=== PATIENT | male | born 1945 | race Caucasian/White ===

== ENCOUNTER 2021-12-17 13:47 | Outpatient (CLI) | payer MEDICARE, SELFPAY ==
--- NOTE | 2021-12-17 13:56 | CT_ITS ---
STUDY: CT RIGHT SHOULDER REASON FOR EXAM: Male, 76 years old. PRE OP RADIATION DOSAGE (If Supplied By Facility): CTDIvol = ( 12.50 ) mGy, DLP = ( 633.35 ) mGycm TECHNIQUE: The patient was scanned in a multi detector CT scanner. High resolution transaxial imaging was performed without the administration of intravenous contrast material. Sagittal and coronal images were reconstructed. Individualized dose optimization techniques were used for this CT. COMPARISON: None. FINDINGS: There is severe osteoarthritis, with severe articular joint space narrowing, osteoarthritic spurring, articular remodeling, and with articular erosions. Small subchondral cysts are seen in the glenoid as well as in the humeral head. The generous spur formation is seen along the inferior medial aspect of the humeral head as well as the superior aspect of the humeral head. Decreased distance between the humeral head and the acromion suggestive of rotator cuff involvement. Normal visualized lateral clavicle. Normal acromioclavicular articulation. There is a Type II morphology (curved), with a neutral orientation. Normal visualized muscles and soft tissue structures. CT/Extremity Upper without Contra IMPRESSION: Marked degree of the osteoarthritis involving the right shoulder joint with degenerative spur formation and subchondral cyst formation. Electronically Signed: Luc Roblero MD at 14:49 EST , Service support ,
== END 2021-12-17 23:59 | disposition short-term general hospital (02) ==
LOC: CT 13:50
PROVIDERS: PCP Internal Medicine; Referring Provider Student in an Organized Health Care Education/Training Program; Visit Provider Student in an Organized Health Care Education/Training Program
DX: M19.011 Primary osteoarthritis, right shoulder (principal); G89.29 Other chronic pain
CPT/HCPCS: 73200

== ENCOUNTER 2022-02-05 10:08 | Observation (INO) | payer MEDICARE, SELFPAY ==
--- NOTE | 2022-01-28 10:31 | RAD_ITS ---
STUDY: X-RAY CHEST REASON FOR EXAM: Male, 76 years old. PREOP TECHNIQUE: PA and lateral views of the chest. COMPARISON: None. FINDINGS: Elevation of the left hemidiaphragm. The lungs are clear. There is no demonstrated pleural abnormality. Sternal cerclage wires are present from a prior sternotomy. Normal mediastinum and mirtha. Normal visualized pulmonary arteries. There is atherosclerotic tortuosity of the aortic arch and descending thoracic aorta. There are diffuse degenerative changes of the visualized thoracic spine. Normal visualized ribs, clavicles, and shoulders. There is no demonstrated abnormality of the visualized soft tissue structures of the upper abdomen. RAD/Chest PA and Lateral IMPRESSION: Hyperinflation. The lungs are clear. Elevation of left hemidiaphragm. Electronically Signed: Luc Roblero MD at 14:42 EST ,
--- NOTE | 2022-01-28 10:33 | EKG12_ITS ---
Test Reason : PRE OP Blood Pressure : / mmHG Vent. Rate : 065 BPM Atrial Rate : 065 BPM P-R Int : 172 ms QRS Dur : 082 ms QT Int : 404 ms P-R-T Axes : 060 056 051 degrees QTc Int : 420 ms Sinus rhythm with marked sinus arrhythmia Otherwise normal ECG Confirmed by LUCY MORELAND, CRISTOFER ([id number]), online content editor LATISHA CAMPOS ([id number]) on 01/29/2022 1:41:55 PM Referred By: Dony Hall Confirmed By:CRISTOFER AYALA MD
[2022-01-28 11:42] LABS: Absolute Lymphocyte Count 1.67 X10^3/uL (0.83-4.51); Absolute Neutrophil Count 4.3 X10^3/uL (2.0-7.7); Basophil# 0.04 X10^3/uL; Basophil% 0.5 % (0-1); Eosinophil# 0.38 X10^3/uL; Eosinophils% 5.2 % (0-5); Hematocrit 44.2 % (40-54); Hemoglobin 14.9 g/dL (13.0-16.5); Lymphocyte # 1.67 X10^3/ul (0.83-4.51); Lymphocyte % 22.7 % (19-41); Mean Corp Hgb Conc 33.7 g/dL (32-36); Mean Corpuscular Hgb 32.6 pg (27.0-32.0); Mean Corpuscular Volume 96.7 fL (80-94); Mean Platelet Vol. 9.4 fl (6.2-12.0); Monocyte# 0.93 X10^3/uL; Monocyte% 12.6 % (0-10); NRBC Flagged by Analyzer 0 % (0-5); Neutrophil # 4.31 X10^3/uL (2.7-7.7); Neutrophil % 58.6 % (47-70); Platelet Count 180 K/mm3 (150-450); RBC Distribution Width CV 12.2 % (11.6-14.6); RBC Distribution Width SD 43.8 fl (35.1-43.9); Red Blood Count 4.57 M/mm3 (4.6-6.2); White Blood Count 7.4 K/mm3 (4.4-11.0)
[2022-01-28 12:24] LABS: Magnesium 2.2 mg/dL (1.6-2.6)
[2022-01-28 12:37] LABS: Anion Gap 6 (5-15); BUN 21 mg/dL (7-18); BUN/Creat Ratio 20.4 RATIO (10-20); Calcium,Total 8.7 mg/dL (8.5-10.1); Chloride 103 mmol/L (98-107); Creatinine, Serum 1.03 mg/dL (0.70-1.30); EST Glomerular Filtration Rate 74 mL/min (>60); Est Glom Filt Rate - Afr Amer 90 mL/min (>60); Glucose 102 mg/dL (74-106); Potassium 4.5 mmol/L (3.5-5.1); Sodium Level 137 mmol/L (136-145)
[2022-02-05] VITALS (12 sets, daily range): BP systolic 114–158; BP diastolic 61–87; PULSE 57–71; RESP 12–18; TEMP 36.5–37.6; O2SAT 94–100; BMI 22.8
--- NOTE | 2022-02-05 | SHO_PTH ---
PATIENT: SHAHEEN DEE LOC: MS3 U#:[id number] AGE/SX: 76/M ROOM: ME310 RE02/05/[address]: Dr. Dony Hall DO : 1945 BED: 1 DIS: 02/06/2022 SPEC #: [id number] RECD: 02/05/22 12:55 STATUS: TREE MATILDE #: [id number] BOGDAN: 02/05/22 00:[address]: Dony Hall DEPT: SURGICAL PATHOLOGY RECD BY: Harjeet Soriano ENTERED: 02/05/22 12:56 SP TYPE: HUMERUS OTHR DR: Dr. Poly Ribeiro MD Tissues: Humerus, NOS Procedures: Decalcification bone/plaque Surgery Specimen Level IV HEADER OPERATION: ERAS, reverse total shoulder arthroplasty PRE-OP DIAGNOSIS: Osteoarthritis right shoulder TISSUE SUBMITTED: Humeral head MICROSCOPIC DIAGNOSIS Humeral head, shoulder resection: Severe degenerative joint disease. AM:loren 02/11/2022 MICROSCOPIC DESCRIPTION Slides are reviewed. GROSS DESCRIPTION Received is one container labeled with the patient's name and designated humeral head. The specimen consists of a humeral head measuring 7 x 6 x 2 cm. The articular surface shows areas of erosion, eburnation and osteophyte formation. No soft tissue is identified. Heat And Frost Insulator sections are submitted in one cassette after decalcification. / SJ:loren 02/05/2022 TC: 5 CPT: 79260, 69385
[2022-02-05 06:06] LABS: Bedside Glucose 120 mg/dL (74-106)
[2022-02-05] MEDS: Lactated Ringers 1,000 ML 15 ML IV ×2 (06:29→20:10)
[2022-02-05] MEDS: Lactated Ringers 1,000 ML 999 ML IV (06:31)
[2022-02-05] MEDS: Scopolamine 1mg/72hr Patch 1 PATCH TD (06:32)
[2022-02-05] MEDS: Gabapentin 600 MG Tablet PO (06:32)
[2022-02-05] MEDS: Acetaminophen 500 MG Tablet 1000 MG PO ×3 (06:32→21:29)
[2022-02-05] MEDS: Cefazolin 2 GM in 0.9% Normal Saline 100 ML IV (07:36)
[2022-02-05] MEDS: dexAMETHasone 10 MG/ML Vial IV (08:00)
[2022-02-05] MEDS: TXA 1000mg in NS100 100ml (IVPB at Incision) 660 MG IV (08:05)
--- NOTE | 2022-02-05 09:58 | PCM.OPRPT ---
Report of Operation Date of Procedure: 02/05/22 Description of Surgical Findings:: Preoperative diagnosis: Right glenohumeral osteoarthritis Postoperative diagnosis: Right glenohumeral osteoarthritis Procedure: Right reverse total shoulder arthroplasty Surgeon: Dony Hall DO Manager Of Hospital: Michelle Moeller PA-C Anesthesia: General endotracheal Lead Care Manager: Julio C Bourne CRNA Complications: None apparent Drains: None Specimen: Right humeral head Estimated blood loss: 250 cc Urinary output: None cc IV fluids: 1500 cc crystalloid Specimens: None Surgical implants: Tornier Aequalis PerFORM+ reversed baseplate 29 mm diameter 15 degree full wedge augment baseplate, standard glenosphere cobalt chrome 42 mm diameter, flex shoulder system reverse tray centered thickness +0 mm, standard PTC humeral stem Aequalis Ascend Flex 132.5 degree angle size 6B, reverse insert thickness +6 mm ultrahigh molecular weight polyethylene angle see, 7.5 degree. 40 mm central screw. Peripheral screws 30 and 26 mm. Surgical indications: This is a 76-year-old male with persistent right shoulder pain. He did have worsening symptoms over the last several months. X-rays revealed primary osteoarthritis of the right glenohumeral joint. His exam was concerning for significant supraspinatus weakness. He failed nonoperative management in the form of NSAIDs, Tylenol, injections, PT. I recommended a reverse shoulder arthroplasty. We obtained a preoperative CT scan for planning. The risks, benefits, alternatives the procedure was reviewed with the patient and he agreed to proceed. Risks included but were not limited to bleeding, infection, instability, loss of life or limb, risk of anesthesia, neurovascular injury, persistent pain, stiffness, prolonged immobilization, need for additional surgery, loosening of orthopedic hardware. He expressed understanding and wished to proceed with surgery. Surgical details: Patient arrived to [facility] morning of the procedure and was greeted by the same day surgery staff. Prior to his procedure, I greeted the patient in the preoperative holding area I identified the patient by name, record number, and date of . Informed consent was confirmed. The operative extremity was marked. All questions were answered to patient satisfaction. Patient was also seen by anesthesia staff. Interscalene block was administered prior to procedure for postoperative analgesia. At time of his procedure, patient was brought to the operative suite and positioned supine on a standard table with a beachchair attachment. General anesthesia was induced after all bony prominences were well-padded. Endotracheal tube was placed. After adequate anesthesia and securing the tube, we prepared the patient to be positioned in the beachchair position. A well-padded overhead crane operator was applied. The nonoperative extremity was placed in a well arm xiao. He was then brought into the beachchair position after we confirmed an appropriate blood pressure. We then spun the bed 45 degrees. The operative extremity was then prepared. In the butterfly wing of the bed was removed and a well-padded torso strap was applied to secure the patient to the bed. The operative extremity was now free. We then prepped and draped the right upper extremity in normal, sterile orthopedic fashion. We then performed a timeout with all parties in attendance in agreement with the side, site, and operation be performed. 2 g Ancef was administered prior to incision by anesthesia staff, as well as 1 g TXA IV. No concerns were voiced and we elected to proceed. I first marked a standard deltopectoral incision just lateral to the coracoid process in line with the long axis of the humerus. Skin was sharply incised with 10 blade scalpel. I then dissected bluntly through the subcutaneous layers and found the fat stripe between the deltoid and pectoralis major. The cephalic vein was then identified and protected. It was retracted laterally with the deltoid. I then bluntly dissected underneath the deltoid with a Reddy elevator. Angel retractor was placed. The upper 1 cm of the pectoralis major was released. I then identified the long head of the biceps tendon in the intertubercular groove. This was tenodesed in situ with #2 FiberWire. I then amputated the biceps proximal to the tenodesis site and followed the tendon to the supraglenoid tubercle where it was amputated. This identified the lesser and greater tuberosities. The supraspinatus was completely torn and retracted with an exposed greater tuberosity. I then performed a subscapularis peel while rotating the humerus externally. I tagged the subscapularis for possible repair later with a tagging suture. I then made a anatomic neck cut of the cartilaginous surface of the humeral head. I placed a canal finding reamer at the superior apex of the humeral head. I then sequentially broached to a size 6 broach with excellent rotational control. I placed a humeral protector plate and subluxed the humeral head posteriorly. I then placed retractors around the posterior and anterior glenoid to expose the glenoid. Glenoid labrum was removed with Bovie cautery protecting the axillary nerve, which was in close proximity to the glenoid neck. We then used the custom guide from [employer] to position our centering pin. Guide was removed and pin was analyzed and compared to preoperative planning. It appeared to be in appropriate position. This was reamed about 2 mm deep utilizing the 15 degree full wedge augmented reamer. We then remove the reamer and used the cannulated drill for the central 40 mm screw. Pin was removed. Post and baseplate was assembled on the back table. We then inserted the baseplate and central screw the assembled baseplate to an appropriate depth. A Pettus was used to confirm depth. Cortical screws then were placed in the most superior and inferior holes with good purchase. The baseplate had excellent purchase and the entire scapula would rotate with rotation of the baseplate. We then impacted the 42 mm glenosphere with a standard eccentricity. Locking screw was then placed in the centering hole of the glenosphere with excellent purchase. We then removed retractors and turned our attention back to the humerus. I placed a standard +0 tray and 6 mm polyethylene insert. I then reduced the shoulder. There was excellent range of motion and stability in all planes of motion. We selected this as our final size. We removed trials from the humerus after final dislocation. I copiously irrigated the canal. Broach was placed on hand and then impacted to an appropriate depth. Final +6 mm polyethylene insert was placed. Final reduction was then performed. I then copiously irrigated the wound with Betadine solution and normal saline solution. Periarticular cocktail was injected around the joint and subcutaneous tissues. Hemostasis was excellent. The axillary nerve was visualized and appeared to be intact. The subscapularis was then identified with a tagging suture. Repair would have been likely under undue tension and likely failed. I elected to not perform a subscapularis repair. We then copiously irrigated the wound with normal saline solution. We reapproximated the interval with 0 Vicryl suture. Subcutaneous layers were reapproximated with 2 -0 Vicryl suture. Skin was finally running V-Loc 3-0 Monocryl suture and Dermabond. A sterile silver Mepilex dressing was applied. Patient was then placed in a simple sling. Patient tolerated procedure well without complication. He was positioned back in the supine position extubated in the operative suite. He was transferred to the [place] and subsequently to PACU in stable condition. Need for skilled orthotics prosthetics assistant: Michelle Moeller PA-C was critical to the outcome of the case. During the course of the procedure the physician orthotics prosthetics assistant played a vital role. Her intimate knowledge of my steps in the procedure aided in safe and expedient completion of the procedure. The PA played a vital role in positioning particularly in obtaining the appropriate positioning. The PA was also vital in the retraction of soft tissues during the exposure and projecting vital structures. The PA was also vital and protecting soft tissues during times of bony cuts. She also played a vital role in closure with my direct supervision. The PA was also important during reduction and dislocation of the joint and trials intraoperatively. Intraoperative medications: 2 g Ancef IV, 1 g TXA IV x2 Post Operative Plan: Weightbearing: Nonweightbearing right upper extremity, okay for pendulums. Range of motion of wrist elbow and hand as tolerated. Antibiotics: 2 g Ancef IV prior to incision DVT Prophylaxis: Aspirin 81 mg twice daily starting tomorrow Hobson: None Dressing: Maintain silver dressing x7 days. Okay to shower dressing on started on day 4 X-Rays: 2 weeks postop in the office Pain Medication: Percocet Rx upon discharge Follow-up: 2 weeks post-operatively with me in the office
[2022-02-05] MEDS: TXA 1000mg in NS100 100ml (IVPB at Closure) 660 MG IV (10:00)
[2022-02-05] MEDS: Lactated Ringers 1,000 ML 125 ML IV (10:38)
--- NOTE | 2022-02-05 10:45 | RAD_ITS ---
STUDY: X-RAY - RIGHT SHOULDER REASON FOR EXAM: Male, 76 years old. Post op -- AP and Lateral X-Ray of operative shoulder in PACU TECHNIQUE: 2 view(s) of the shoulder. COMPARISON: 12/17/2021 FINDINGS: Patient is postop from right glenohumeral replacement surgery. Components demonstrate anatomic alignment. No plain film evidence of postoperative complication. Normal postoperative soft tissue swelling and subcutaneous emphysema. Mild acromioclavicular joint arthrosis. No upper rib fracture or pneumothorax RAD/Shoulder min 2 Views IMPRESSION: Anatomic alignment of the replaced right glenohumeral joint. No postoperative complications Electronically Signed: Pedrito Chapa MD at 11:16 EST ,
--- NOTE | 2022-02-05 10:53 | EKG12_ITS ---
Test Reason : Blood Pressure : / mmHG Vent. Rate : 065 BPM Atrial Rate : 065 BPM P-R Int : 172 ms QRS Dur : 088 ms QT Int : 466 ms P-R-T Axes : 057 014 076 degrees QTc Int : 484 ms Sinus rhythm with marked sinus arrhythmia Nonspecific T wave abnormality Prolonged QT Abnormal ECG When compared with ECG of 28-JAN-2022 10:43, Nonspecific T wave abnormality, worse in Lateral leads QT has lengthened Confirmed by LUCY MORELAND, CRISTOFER ([id number]), makeup editor LATISHA CAMPOS ([id number]) on 02/09/2022 11:28:22 AM Referred By: Dony Hall Confirmed By:CRISTOFER AYALA MD
[2022-02-05 11:48] LABS: Troponin-I HS 11 pg/mL (3.0-78.0)
--- NOTE | 2022-02-05 12:11 | SUR.PHASEI ---
PATIENT HAD GOOD CAP REFILL, WARM HANDS AND GOOD RADIAL PULSE TO THE RIGHT HAND. HE DOESN'T HAVE FEELING OR ABLE TO MOVE HIS FINGERS D/T BLOCK. DOCTOR AWARE.
[2022-02-05] MEDS: Cefazolin 1 GM/50 ML BAG IV ×2 (13:59→21:27)
[2022-02-05] MEDS: Senna/Docusate Sodium 1 Tablet 2 TABLET PO (21:28)
[2022-02-05] MEDS: Carvedilol 6.25 MG Tablet PO (21:47)
[2022-02-05] MEDS: Lisinopril 20 MG Tablet PO (21:47)
[2022-02-05] MEDS: amLODIPine 10 MG Tablet PO (21:47)
[2022-02-05] MEDS: Atorvastatin Calcium 40 MG Tablet PO (21:47)
[2022-02-05] MEDS: Tamsulosin HCl 0.4 MG Capsule PO (21:47)
[2022-02-06] MEDS: Acetaminophen 500 MG Tablet 1000 MG PO (05:44)
[2022-02-06 06:27] LABS: Hematocrit 34.1 % (40-54); Hemoglobin 11.9 g/dL (13.0-16.5); Mean Corp Hgb Conc 34.9 g/dL (32-36); Mean Corpuscular Hgb 33.2 pg (27.0-32.0); Mean Corpuscular Volume 95.3 fL (80-94); Platelet Count 117 K/mm3 (150-450); Red Blood Count 3.58 M/mm3 (4.6-6.2); White Blood Count 9.5 K/mm3 (4.4-11.0)
[2022-02-06 06:52] LABS: Anion Gap 2 (5-15); BUN 19 mg/dL (7-18); BUN/Creat Ratio 18.3 RATIO (10-20); Calcium,Total 8.3 mg/dL (8.5-10.1); Chloride 108 mmol/L (98-107); Creatinine, Serum 1.04 mg/dL (0.70-1.30); EST Glomerular Filtration Rate 73 mL/min (>60); Est Glom Filt Rate - Afr Amer 89 mL/min (>60); Estimated Creatinine Clearance 64.97 ml/min; Glucose 115 mg/dL (74-106); Potassium 4.6 mmol/L (3.5-5.1); Sodium Level 136 mmol/L (136-145)
--- NOTE | 2022-02-06 07:41 | PCM.DC.SUM ---
Providers Date of Admission: 02/05/22 Primary Care Physician: Dr. Poly Ribeiro MD Reason For Visit: Right reverse shoulder arthroplasty Diagnosis Discharge Diagnosis (1) Arthritis of right glenohumeral joint: Status: Acute Code(s): M19.011 - Primary osteoarthritis, right shoulder Plan: POD#1 s/p right reverse shoulder arthroplasty - Pain control - PT/OT - DVT PPX -SCDs, early mobilization, aspirin 81 mg twice daily -Patient stable for discharge today. Follow-up in 2 weeks. Medications at Discharge Home Medications acetaminophen [Tylenol] 650 mg PO Q6H PRN 01/21/22 amlodipine 10 mg PO QHS 01/21/22 ascorbic acid (vitamin C) [Vitamin C] 500 mg PO DAILY 01/21/22 aspirin [Aspir-81] 81 mg PO DAILY 01/21/22 atorvastatin 40 mg PO QHS 01/21/22 carvedilol 6.25 mg PO BID 01/21/22 lisinopril 20 mg PO BID 01/21/22 multivitamin 1 cap PO DAILY 01/21/22 tamsulosin 0.4 mg PO QHS 01/21/22 aspirin 81 mg PO BID 28 Days #56 tab 02/06/22 sennosides-docusate sodium [Stool Softener-Stimulant Laxat] 2 tab PO BID 14 Days #56 tab 02/06/22 Hospital Course Summary of Care Provided Hospital Course: Patient underwent uncomplicated right reverse shoulder arthroplasty for severe right glenohumeral joint arthritis on 02/05/2022. He tolerated the procedure well. Patient has significant cardiac history and we elected to place patient in observation overnight for monitoring. Patient did well without any significant issues overnight. He was able to be discharged on postoperative day #1. Physical Exam Narrative General - A&Ox3, NAD. VSS/AF. Right upper Extremity - SILT & 5/5 in radial, ulnar, musculocutaneous, axillary, and median nerve distributions. Radial, ulnar pulses 2+. Compartments soft and compressible. BCR in finger tips. Incisional dressing C/D/I. Weight / BMI Weight Weight: 172 lb 15.948 oz Body Mass Index (BMI) 22.8 ABG / Lab / Microbiology Data Result Diagrams: 02/06/22 05:40 02/06/22 05:40 Laboratory: Laboratory Results - last 24 hr 02/05/22 11:15: Troponin I High Sens 11 02/06/22 05:40: WBC 9.5, RBC 3.58 L, Hgb 11.9 L, Hct 34.1 L, MCV 95.3 H, MCH 33.2 H, MCHC 34.9, RDW Std Deviation 42.0, RDW Coeff of Jevon 12.0, Plt Count 117 L, MPV 10.0 02/06/22 05:40: Sodium 136, Potassium 4.6, Chloride 108 H, Carbon Dioxide 26.0, Anion Gap 2 L, BUN 19 H, Creatinine 1.04, Estim Creat Clear Calc 64.97, Est GFR (MDRD) Af Amer 89, Est GFR (MDRD) Non-Af 73, BUN/Creatinine Ratio 18.3, Glucose 115 H, Calcium 8.3 L Microbiology: Microbiology 02/05/22 05:55 Interface Orders SARS-CoV-2 Antigen (Rapid) - Final 01/28/22 10:22 Swab (Method) Nasal Screen MRSA/MSSA - Final Radiography Diagnostic Testing: Radiology Impression Shoulder X-Ray 02/05/22 10:45 IMPRESSION: Anatomic alignment of the replaced right glenohumeral joint. No postoperative complications Electronically Signed: Pedrito Chapa MD at 11:16 EST Reading Location ID and State: [address] [place] [address] , Service support , Meaningful Use Info Meaningful Use Diagnoses (Choose all that apply): None applicable Discharge Plan Admission Admit Date/Time: 02/05/22 10:08 Attending Provider: Dony Hall Primary Care Provider: Poly Ribeiro Instructions Additional Instructions / Restrictions: Follow preprinted instructions from your surgeon's office Discharge Orders/Prescriptions Prescriptions: New sennosides-docusate sodium [Stool Softener-Stimulant Laxat] 8.6-50 mg Tablet 2 tab PO BID 14 Days Qty: 56 RF: 0 aspirin 81 mg Tablet,Delayed Release (Dr/Ec) 81 mg PO BID 28 Days Qty: 56 RF: 0 Continued atorvastatin 40 mg Tablet 40 mg PO QHS RF: 0 acetaminophen [Tylenol] 325 mg Tablet 650 mg PO Q6H PRN (Reason: Pain) RF: 0 carvedilol 6.25 mg Tablet 6.25 mg PO BID RF: 0 lisinopril 20 mg Tablet 20 mg PO BID RF: 0 tamsulosin 0.4 mg Capsule 0.4 mg PO QHS RF: 0 amlodipine 10 mg Tablet 10 mg PO QHS RF: 0 ascorbic acid (vitamin C) [Vitamin C] 500 mg Tablet,Chewable 500 mg PO DAILY RF: 0 multivitamin Capsule 1 cap PO DAILY RF: 0 No Action aspirin [Aspir-81] 81 mg Tablet,Delayed Release (Dr/Ec) 81 mg PO DAILY RF: 0 Other Ambulatory Orders: 12 Lead EKG (Routine) Timeframe: [id number] Location: None Selected Ordered By: Dr. Dony Hall Referrals / Follow Up: Poly Ribeiro MD [Primary Care Provider] - Dony Hall DO [STAFF PHYSICIAN] - Within 2 Weeks Disposition Disposition (needs filled in before D/C Order can be placed): Home, Self Care
--- NOTE | 2022-02-06 07:45 | PCM.DC ---
Discharge Instructions Follow Up Care Test Results: Test results from this visit will be discussed in further detail at your follow-up appointment, if applicable. Discharge Plan Admission Admit Date/Time: 02/05/22 10:08 Attending Provider: Dony Hall Primary Care Provider: Poly Ribeiro Instructions Additional Instructions / Restrictions: Follow preprinted instructions from your surgeon's office Discharge Orders/Prescriptions Prescriptions: New sennosides-docusate sodium [Stool Softener-Stimulant Laxat] 8.6-50 mg Tablet 2 tab PO BID 14 Days Qty: 56 RF: 0 aspirin 81 mg Tablet,Delayed Release (Dr/Ec) 81 mg PO BID 28 Days Qty: 56 RF: 0 Continued atorvastatin 40 mg Tablet 40 mg PO QHS RF: 0 acetaminophen [Tylenol] 325 mg Tablet 650 mg PO Q6H PRN (Reason: Pain) RF: 0 carvedilol 6.25 mg Tablet 6.25 mg PO BID RF: 0 lisinopril 20 mg Tablet 20 mg PO BID RF: 0 tamsulosin 0.4 mg Capsule 0.4 mg PO QHS RF: 0 amlodipine 10 mg Tablet 10 mg PO QHS RF: 0 ascorbic acid (vitamin C) [Vitamin C] 500 mg Tablet,Chewable 500 mg PO DAILY RF: 0 multivitamin Capsule 1 cap PO DAILY RF: 0 No Action aspirin [Aspir-81] 81 mg Tablet,Delayed Release (Dr/Ec) 81 mg PO DAILY RF: 0 Other Ambulatory Orders: 12 Lead EKG (Routine) Timeframe: [id number] Location: None Selected Ordered By: Dr. Dony Hall Referrals / Follow Up: Poly Ribeiro MD [Primary Care Provider] - Dony Hall DO [STAFF PHYSICIAN] - Within 2 Weeks Disposition Disposition (needs filled in before D/C Order can be placed): Home, Self Care
[2022-02-06 09:15] VITALS: BP 121/54; PULSE 78; RESP 18; TEMP 36.8; O2SAT 95
[2022-02-06] MEDS: Senna/Docusate Sodium 1 Tablet 2 TABLET PO (09:18)
[2022-02-06] MEDS: Aspirin E.C. 81 MG Tablet PO (09:18)
[2022-02-06] MEDS: Carvedilol 6.25 MG Tablet PO (09:19)
[2022-02-06] MEDS: Lisinopril 20 MG Tablet PO (09:19)
--- NOTE | 2022-02-06 10:22 | CASEMGMT ---
"JUNIOR TAPIA Assessment: Face to Face with pt for initial transition planning/care coordination assessment. JUNIOR TAPIA introduced self and role at [facility], pt voices understanding and consents to assessment. Pt is A/O x4 and answers all questions appropriately at this time. Pt very [place]. Care providers, pharmacy, and demographics verified/updated. Admitting Dx: R anatomic vs reverse total shoulder PCP:[facility] Specialists:[facility], ortho OR; cardio in [place]- unsure of name; [place], general OR; uro in [place]- unsure of name Preferred Pharmacy: [facility] Retail Insurance: [employer] | [employer] Prescription Benefit: no LW/HPOA: Pt denies having a LW/DPOA and denies need for info regarding AD. LNOK: Damari Churchill, Living Arrangements: Pt lives with in a single story house with 10 steps with a rail to enter. Pt reports he is I in ADL's prior to surgery. States his is able to assist him post surgery. Transportation: Pt drives self and denies concerns with transportation. will assist with transportation until pt able to drive. DME/HHC/SNF: Pt has a rollator at home but does not use regularly. He used post surgery for open heart and hernia repair. Pt also has grab bars in the bathroom by the toilet and in shower. PT recommended quad cane. TC to [facility], they do not have. TC to [facility], cost is $37.68. TC to [facility] also and left message with [facility]. Pt/ aware this is not covered by insurance. They will hop picker on way home at [facility]. Pt states he did have HHC in the past but is unsure of the name of the agency. Pt denies SNF stays. Pt states no concerns with going home at time of dc. Pt states no further concerns/needs. CM to follow. Advised pt to ask CM if any further question/concerns/needs arise, voices understanding. Pt Goal: Home Plan: Home"
[2022-02-06 11:42] VITALS: BP 118/78; PULSE 72; RESP 18; TEMP 36.6; O2SAT 97
== END 2022-02-06 11:44 | disposition home or self-care (01) ==
LOC: SDC 10:20 → MS3 10:20
PROVIDERS: Anesthesiology; Admitting Provider Student in an Organized Health Care Education/Training Program; PCP Internal Medicine; Referring Provider Student in an Organized Health Care Education/Training Program; Visit Provider Student in an Organized Health Care Education/Training Program
PROC: (CPT 23472; principal; 2022-02-05 07:00)
DX: M19.011 Primary osteoarthritis, right shoulder (principal); I10 Essential (primary) hypertension; G47.30 Sleep apnea, unspecified; E78.00 Pure hypercholesterolemia, unspecified; H54.7 Unspecified visual loss; Z79.82 Long term (current) use of aspirin; Z79.899 Other long term (current) drug therapy
CPT/HCPCS: 23472; 64415; 36415; 71046; 73030; 80048; 82962; 83735; 84484; 85025; 85027; 87077; 87081; 87426; 88305; 88311; 93005; 96365; 96366; 97162; 97167; 99218; 99251; C1776; J7120; G0378; G0463; J2405

== ENCOUNTER → 2024-02-08 | Outpatient (CLI) | payer MEDICARE, SELFPAY ==
[2024-02-08 15:43] LABS: PSA,Total - Annual Screen 0.94 ng/mL (0.00-4.00)
== END | disposition home or self-care (01) ==
LOC: LAB 11:28
PROVIDERS: PCP Internal Medicine; Referring Provider Urology; Visit Provider Urology
DX: Z12.5 Encounter for screening for malignant neoplasm of prostate (principal)
CPT/HCPCS: 36415; 84153; G0103